=== PATIENT | female | born 1945 | race Caucasian/White ===

== ENCOUNTER 2017-03-17 09:34 | Emergency (ER) | payer MEDICARE, OTHER ==
[~2017-03-17] VITALS: Ht 160 cm; Wt 89.8 kg
[2017-03-17] MEDS ORDERED: [UNRECOGNIZED DRUG - OTHER] (09:49)
[2017-03-17] MEDS ORDERED: IBUP-1114 PO (09:49)
[2017-03-17] MEDS ORDERED: OMEP40CA2 PO (09:49)
--- NOTE | 2017-03-17 10:13 | ECGEPIP ---
Stationary ECG Study [facility] - ED Test Date: 2017-03-17 Pat Name: KIAN BRIGGS Department: Room: - Gender: F Membership Coordinator: : 1945 Requested By: Enmanuel Cortez Order Number: [id number] Reading MD: Tosin Hudson Measurements Intervals [place] Rate: 64 P: 54 MT: 125 QRS: 54 QRSD: 90 T: 21 QT: 392 QTc: 405 Interpretive Statements SINUS RHYTHM WITH SINUS ARRHYTHMIA NO PRIOR FOR COMPARISON Electronically Signed On 03-17-2017 10:12:45 EDT by Tosin Hudson
[2017-03-17] MEDS ORDERED: MORPHINE 2 MG/ML 1ML SYRINGE IV ONE (10:30)
[2017-03-17] MEDS ORDERED: ONDANSETRON 4MG/2ML VIAL (J2405) IV ONE ×2 (10:30→17:30)
--- NOTE | 2017-03-17 11:23 | REP ---
CERVICAL SPINE, SEVEN VIEWS: HISTORY: Left radicular pain. COMPARISON: 01/19/2016 There is no acute fracture. The C3-4 through C5-6 intervertebral discs are decreased in height consistent with disc degeneration. 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 Osteophytes are present on C3 through C6. There is narrowing of the C3 through C5 neural foramina secondary to uncinate process hypertrophy. There are 3 mm of anterior subluxation of C4 on C5. This increases to 4 mm with flexion and returns to 3 mm with extension. IMPRESSION: Degenerative change as described above. Signed by Eric Gipson MD 03/17/2017 11:29 A
[2017-03-17] MEDS ORDERED: MORPHINE 4 MG/ML 1ML SYRINGE IV ONE (12:45)
[2017-03-17 14:17] VITALS: BP 163/82
[2017-03-17] MEDS ORDERED: CYCL5TA PO (19:02)
[2017-03-17] MEDS ORDERED: PERC5TAB6 PO (19:02)
--- NOTE | 2017-03-18 06:20 | REP ---
MRI CERVICAL SPINE WITHOUT CONTRAST: 03/17/2017. Clinical history: Acute left C5-6 radiculopathy, left upper extremity pain for several days worsening after a lifting injury. There is a technologist's note at 4:40 p.m. indicating that the patient was unable to complete the exam and that the scanner had several malfunctions and the patient only was able to have sagittal T1, T2 and STIR images. There is no axial image set. This significantly limits evaluation. Comparison: x-ray 03/17/2017. Findings: There is diffuse discogenic change at C3-4, C5-6 and C6-7, less at C7-T1. All levels show loss of disc water signal. There are posterior osteophyte disc complexes at C5-6 indenting the ventral cord surface. The C3-4 level shows a smaller disc bulge indenting the ventral cord surface. There is no intrinsic cord signal abnormality, syrinx or cord atrophy. Minimal disc bulge at C7-T1 not abutting the ventral cord surface. There is spinal stenosis from C3-4 through C5-6, greatest at C5-6 with the AP canal diameter 9 mm there. Craniocervical junction shows ample subarachnoid space and no cerebellar tonsillar ectopia. Impression: 1. Spinal stenosis from C3-4 through C5-6 with disc osteophyte complex suggested at C5-6 indenting ventral cord surface and causing some degree of spinal stenosis with AP canal diameter 9 mm. 2. Spinal stenosis with mild cord compression at C3-4 with similar AP canal diameter and smaller disc bulge. There is also spinal stenosis at C4-5. No myelomalacia, syrinx or mass. Craniocervical junction was intact. 3. I am informed that the technologist transferred the patient back to the ED by herself and spoke to the ED staff. She did not speak to the ordering physician. The study is presented for my initial review at the time of this dictation. Signed by Jace Lopez MD 03/18/2017 04:39 P
== END 2017-03-17 19:12 | disposition home or self-care (01) ==
LOC: M ED 10:48
DX: M48.02 Spinal stenosis, cervical region (principal); M50.11 Cervical disc disorder with radiculopathy, high cervical region; M50.121 Cervical disc disorder at C4-C5 level with radiculopathy
CPT/HCPCS: 72052; 72141; 93005; 96374; 96375; 96376; 99285; J2405; J3360